=== PATIENT | male | born 1995 | race Caucasian/White ===

== ENCOUNTER 2024-07-12 12:05 | Emergency (ER) | payer OTHER, SELFPAY ==
[2024-07-12 12:06] VITALS: BP 140/86
[2024-07-12 12:09] VITALS: BMI 39.1
--- NOTE | 2024-07-12 13:25 | ED.GENMED ---
History of Present Illness
General
Chief Complaint: Foreign Body Removal
Source: patient and other (Guards)
Exam Limitations: none
Time Seen by Provider: 07/12/24 12:31
Nursing documentation reviewed up to this point in time: agreed with
History of Present Illness
History of Present Illness:
28-year-old male mental illness DUI first offense was to go for the police judge apparently was late March 16 the local alf, they did a new screening procedure that showed a potential foreign body in his stomach he adamantly denies taking any foreign
body specifically any drugs, he is without complaints guards tell me he typically would have been discharged today to home but due to timing will likely go home tomorrow they did not witness any ingestion
Past History
Past History
ED Past Medical History: Psychiatric
Social History
Tobacco: Non-smoker
Alcohol: Occasional
Drug: None
Living: [facility]
Employment: Employed
Review of Systems
Review of Systems
All Other Systems: Not applicable
Respiratory: Reports no symptoms
Cardiac: Reports no symptoms
ABD/GI: Reports no symptoms; Denies abdominal pain or vomiting
Phy Exam
Physical Exam
Physical Exam:
Physical Exam
General: no apparent distress, not acutely ill
Neck: No no jaundice
Heart: s1/s2 regular rate and rhythm, no murmur. equal radial pulses.
Lungs: no acute respiratory distress. clear bilaterally
Abdomen nontender
Neuro: alert and oriented. no focal neurological deficits
Skin: no rash
Psychiatric: well kept. interactive and cooperative
Extremities: no edema.
Course
Orders/Labs/Results
Orders:
Orders
07/12/24 12:11
Abdomen Xray - 1 View [CR Abdomen - 1 View] Urgent
Comment:
Reason For Exam: fb
Vital Signs
Initial and Last Documented VS:
Initial Vital Signs
Pulse Resp BP Pulse Ox
82 18 140/86 100
07/12/24 12:06 07/12/24 12:06 07/12/24 12:06 07/12/24 12:06
Last Documented Vital Signs
Temp Pulse Resp BP Pulse Ox
98.2 F 82 18 140/86 100
07/12/24 12:09 07/12/24 12:06 07/12/24 12:06 07/12/24 12:06 07/12/24 12:06
MDM/Problems Addressed
Differential Diagnosis Includes:
Foreign body, false negative exam as an outpatient, [employer]
MDM/Problems Addressed:
Possible foreign body
Chronic conditions affecting care: Psychiatric illness
Acute Exacerbation and/or Progression of Chronic Illness: Psychiatric illness
*Radiology
Radiology exam reviewed: radiology read reviewed
*Pulse Oximetry
Patient hypoxic: no
*Critical Care Note
Total Time (30-74mins, 75-104mins- exclusive of procedures): Not Applicable
Update Note
Update Note:
Update patient no acute distress x-ray noted. Stable for discharge to the alf again history does not go along with ingested foreign body patient was planning on going home denies any drug use nothing seen on x-ray
ED Attending Note
-
Portions of this chart may have been created with voice recognition software.� Occasional wrong word or��sound alike� substitutions may have occurred due to the inherent limitations of voice recognition software.
Discharge Plan
Departure
Patient Disposition: Home (Routine Discharge)
Date of Disposition: 07/12/24
Time of Disposition: 13:25
Patient with high blood pressure during this ER visit?: No
Condition: Good
Discharge Problem:
Encounter for medical screening examination
Instructions: General
Referrals:
[facility] [Family Provider] -
Activity Restrictions/Additional Instructions:
Return to the ER if any concerns
Interventions
Interventions:
*Risk Screen - Suicide Last Done: 07/12/24 12:09
*General Assessment Last Done: 07/12/24 12:09
*Neglect/Abuse Screening Last Done: 07/12/24 12:09
ED- Fall Risk Assessment Last Done: 07/12/24 12:12
*ED COVID-19 Vaccine History Last Done: 07/12/24 12:09
Discharge Date and Time
Print Language: CZECH
== END 2024-07-12 13:39 | disposition home or self-care (01) ==
LOC: EMR 12:05
PROVIDERS: EMERGENCY PHYSICIAN Emergency Medicine
DX: Z00.00 Encounter for general adult medical examination without abnormal findings (principal)
CPT/HCPCS: 99283; 74018